=== PATIENT | male | born 1965 | race African-American/Black ===

== ENCOUNTER 2017-02-13 22:56 | Emergency (ER) | payer OTHER ==
[~2017-02-13 22:56] MED LIST: POLYTRIM O200 GTT/BO OPH; PREDNISONE20 M1 PO; PROAIR HFA8.5 GM INH; TRAMADOL HCL50 M1 PO; ZITHROMAX250 M2 PO
[2017-02-13 23:29] VITALS: BP 149/79
--- NOTE | 2017-02-13 23:29 | ED ANIMAL BITE/WOUND CHECK ---
History of Present Illness General Chief Complaint: Animal/Insect Bite Stated Complaint: MULTIPLE TICKS ON HIM FROM WORK Source: patient Exam Limitations: no limitations Vital Signs & Intake/Output Vital Signs & Intake/Output Vital Signs Date Time Temp Pulse Resp B/P B/P Pulse O2 O2 Flow FiO2 Mean Ox Delivery Rate 02/13 2329 96.6 67 18 149/79 96 Room Air Allergies Coded Allergies: NO KNOWN ALLERGIES (09/25/16) Reconcile Medications No Known Home Medications Triage Nurses Notes Reviewed? yes Onset: Abrupt Duration: better Timing: recent history Injury Environment: work Is Injury an Animal Bite? Yes Severity: mild Severity Numbers: 1 HPI: Patient is a 51-year-old male who presents emergency room stating that while at work today as he works for the [employer] outside he was taking off his close after work and his noted 3 TICKS bites to his skin. The removed the tick with tweezers Located to his mid back right pectoral region and right flank region. Patient denies any history of Lyme disease Patient otherwise is without complaints. (SYDNEE NOBLES) Past History Travel History Traveled to [place] past 21 day No Medical History Any Pertinent Medical History? none Neurological: NONE EENT: NONE Cardiovascular: NONE Respiratory: NONE Gastrointestinal: NONE Hepatic: NONE Renal: NONE Musculoskeletal: NONE Psychiatric: NONE Endocrine: NONE Blood Disorders: NONE Cancer(s): NONE Surgical History Surgical History: none Psychosocial History What is your primary language [place] Family History Hx Contributory? No (SYDNEE NOBLES) Review of Systems Review of Systems Constitutional: Reports: no symptoms. EENTM: Reports: no symptoms. Respiratory: Reports: no symptoms. Cardiovascular: Reports: no symptoms. GI: Reports: no symptoms. Genitourinary: Reports: no symptoms. Musculoskeletal: Reports: no symptoms. Skin: Reports: see HPI. Neurological/Psychological: Reports: no symptoms. Hematologic/Endocrine: Reports: no symptoms. Immunologic/Allergic: Reports: no symptoms. All Other Systems: Reviewed and Negative (SYDNEE NOBLES) Physical Exam Physical Exam General Appearance: no apparent distress, alert, comfortable Head: atraumatic Eyes: Bilateral: normal appearance. Ears, Nose, Throat: hearing grossly normal Neck: normal inspection Respiratory: normal breath sounds Back: normal range of motion Neurologic/Psych: no motor/sensory deficits, awake Skin: normal color, warm/dry Diagram Body: 1) Noted 2 mm well-healing skin scab with no foreign body no active discharge or bleeding nontender no swelling no erythema no warmth 2) Noted 2 mm well-healing skin scab with no foreign body no active discharge or bleeding nontender no swelling no erythema no warmth 3) Noted 2 mm well-healing skin scab with no foreign body no active discharge or bleeding nontender no swelling no erythema no warmth (SYDNEE NOBLES) Progress Differential Diagnosis: abscess, cellulitis, joint infection, tenosysnovitis, LYME DISEASE, TICK BITE, FB RETENTION Plan of Care: Current Medications Sig/Sayra Start time Last Medication Dose Stop Time Status Admin Doxycycline Hyclate 200 MG ONCE ONE 02/13 2345 UNVr (Vibramycin) 02/13 2346 On physical exam, there are no signs of foreign body or retained tics. Patient was consultED on close monitoring for erythema migrans or signs of infection and he will comply. Patient was given prophylactic dose of tick bite (SYDNEE NOBLES) Departure Departure Disposition: HOME OR SELF CARE Condition: Stable Clinical Impression Primary Impression: Tick bite Referrals: PATIENT HAS NO PRIMARY CARE DR (PCP/Family) Additional Instructions: As discussed YOU have received a one-time dose of 200 mg of doxycycline in the emergency room. If you've NOTE worsening signs of infection such as redness swelling discharge or fevers return to the emergency room immediately. Check YOUR skin once today for ticks and worsening signs of infection. Departure Forms: Customer Survey General Discharge Information Prescriptions: Current Visit Scripts No Known Home Medications (SYDNEE NOBLES) PA/EDUCATION SPEC Co-Sign Statement Statement: ED Attending supervision documentation- [] I saw and evaluated the patient. I have also reviewed all the pertinent lab results and diagnostic results. I agree with the findings and the plan of care as documented in the PA's/EDUCATION SPEC's documentation. [X] I have reviewed the ED Record and agree with the PA's/EDUCATION SPEC's documentation. [] Additions or exceptions (if any) to the PAs/EDUCATION SPEC's note and plan are summarized below: [] (AVERY PARIS,[facility])
== END 2017-02-13 23:51 ==
LOC: ERH 22:56
DX: S30.860A Insect bite (nonvenomous) of lower back and pelvis, initial encounter (principal); S30.861A Insect bite (nonvenomous) of abdominal wall, initial encounter; W57.XXXA Bitten or stung by nonvenomous insect and other nonvenomous arthropods, initial encounter; Y92.9 Unspecified place or not applicable; Y93.9 Activity, unspecified